=== PATIENT | male | born 1965 | race African-American/Black ===

== ENCOUNTER 2018-08-07 10:41 | Observation (INO) ==
[2018-08-07 10:57] VITALS: BMI 24.5
[2018-08-07 11:16] LABS: BASOPHILS # (AUTO) 0.1 X10^3/uL (0.0-0.1); BASOPHILS % (AUTO) 0.6 % (0.2-1.0); EOSINOPHILS # (AUTO) 0.1 x10^3/uL (0.0-0.2); EOSINOPHILS % (AUTO) 1.1 % (0.9-2.9); HEMATOCRIT 46.1 % (42.0-54.0); HEMOGLOBIN 15.6 g/dL (13.5-18.0); LYMPHOCYTES # (AUTO) 1.9 X10^3/uL (1.3-2.9); LYMPHOCYTES % (AUTO) 20.4 % (21.0-51.0); MEAN CORPUSCULAR HEMOGLOBIN 28.7 pg (27.0-34.0); MEAN CORPUSCULAR HGB CONC 33.9 g/dL (33.0-35.0); MEAN CORPUSCULAR VOLUME 84.7 fL (80.0-100.0); MEAN PLATELET VOLUME 7.2 fL (7.4-11.0); MONOCYTES # (AUTO) 0.6 x10^3/uL (0.3-0.8); MONOCYTES % (AUTO) 6.7 % (0.0-13.0); NEUTROPHILS # (AUTO) 6.6 x10^3/uL (2.2-4.8); NEUTROPHILS % (AUTO) 71.2 % (42.0-75.0); PLATELET COUNT 293 X10^3/uL (150.0-450.0); RED BLOOD COUNT 5.44 X10^6/uL (4.7-6.0); RED CELL DISTRIBUTION WIDTH 13.8 % (11.6-16.5); WHITE BLOOD COUNT 9.2 X10^3/uL (3.6-10.0)
--- NOTE | 2018-08-07 11:22 | DR.CP ---
HPI Time Seen Time Seen by Provider: 08/07/18 11:20 PCP Primary Care Physician: TAMARA HPI Comment HPI Comment: 53YR OLD MALE HERE IN ED WITH SYCOPAL EPISODE IN THE PCP OFFICE. PATIENT SEEN IN ED 2 DAYS AGO AND STARTED FEELING WEAK AND PASS OUT WHILE IN PCP OFFICE. Complaint Chief Complaint Doctor Comments: SYNCOPAL EPISODE, CHEST PAIN. Chief Complaint:: PT C/O SYNCOPAL EPISODE AT THE DOCTORS OFFICE. PT STATES HE IS HAVING CHEST PAIN. PT STATES HE WAS SEEN IN THE ER DEPT X2 DAYS AGO AND WAS SENT HOME WITH A PRESCRIPTION OF AMLIODIPINE 5MG. Reviewed Nurses Notes Review: Yes Source History Provided: Patient Mode of Arrival Mode of Arrival: EMS Timing Onset of Chief Complaint: 08/04/18 Came on: Suddenly Duration Duration: Constant Duration: Minutes Location Location of Chest Pain: Chest Context Onset: At rest Cardiac Risk Factors: None PE Risk Factors: None History of: None Quality Quality: Pressure like Severity Severity: Moderate Associated Signs and Symptoms Associated Signs and Symptoms: Other (sncopal episode.) PMH PMH Past Medical History: No Past Surgical History: Yes Surgical History: Other Past Surgical History Comment: KIDNEY REMOVAL (DONATION) Family History History of Family Medical Conditions: Yes Family Medical History: Diabetes Mellitus, [place] and Hypertension Social History Does any household member use tobacco: No Alcohol Use: None Do you use any recreational Drugs:: No Lives With: Family Lives Where: Home infectious screening In the last 2 months have you had wt loss of >10#?: NO Have you had fever, night sweats or hemotysis?: No Have you traveled outside the country in the last 6 months?: No Isolation: Standard ROS Review of Systems Constitutional: Weakness Eyes: No Symptoms Reported ENTM: No Symptoms Reported Respiratoy: No Symptoms Reported Cardiovascular: Syncope Gastrointestinal/Abdominal: No Symptoms Reported Genitourinary: No Symptoms Reported Neurological: Weakness Musculoskeletal: No Symptoms Reported Integumentary: No Symptoms Reported Hematologic/Lymphatic: No Symptoms Reported Endocrine: No Symptoms Reported Psychiatric: No Symptoms Reported All Other Systems: Reviewed and Negative PE Vitals Vitals: Temperature 98.3 F Pulse Rate [Apical] 66 Pulse Rate 63 Respiratory Rate 18 Blood Pressure [Right Arm] 162/91 Blood Pressure [Left Arm] 168/91 Blood Pressure 174/93 O2 Sat by Pulse Oximetry 100 General Limitations: No Limitations General Appearance: Alert and In No Apparent Distress Head Head Exam: Normal Inspection Eyes Eye exam: Normal Appearance ENT ENT Exam: Normal Exam Chest Chest Inspection: Normal Inspection Respiratory Respiratory Exam: Normal Lung Sounds Bilat Respiratory Exam: Bilateral: Clear to Auscultation Cardiovascular Cardiovascular Exam: Regular Rate and Normal Rhythm Pulse: Normal Edema: Normal Abdominal Exam Abdominal Exam: Normal Inspection, Normal Bowel Sounds and Soft Extremities Extremities Exam: Normal Inspection Back Back Exam: Normal Inspection Neurologic Neurological Exam: Alert and Oriented X3 Psychiatric Psychiatric Exam: Normal Affect and Normal Mood Skin Skin Exam: Warm, Dry, Intact and Normal Color MDM Differential Diagnosis Differential Diagnosis: Angina, Chest Wall Pain, CHF, Costochondritis, Myocardial Infarction, Pleuritis, Pneumonia, Pneumothorax and Pulmonary Embolus COURSE Treatment Treatment: see orders. Education/Counseling Education/Counseling: Patient Educated On: Diagnosis and Needs for Follow Up ROR Labs Reviewed Laboratory Results Reviewed?: Yes Result Diagrams: 08/09/18 05:00 08/09/18 05:00 Laboratory: WBC 10.8 X10^3/uL (3.6-10.0) H 08/09/18 05:00 RBC 5.39 X10^6/uL (4.7-6.0) 08/09/18 05:00 Hgb 15.7 g/dL (13.5-18.0) 08/09/18 05:00 Hct 45.6 % (42.0-54.0) 08/09/18 05:00 MCV 84.5 fL (80.0-100.0) 08/09/18 05:00 MCH 29.1 pg (27.0-34.0) 08/09/18 05:00 MCHC 34.5 g/dL (33.0-35.0) 08/09/18 05:00 RDW 13.6 % (11.6-16.5) 08/09/18 05:00 Plt Count 305 X10^3/uL (150.0-450.0) 08/09/18 05:00 MPV 7.3 fL (7.4-11.0) L 08/09/18 05:00 Neut % (Auto) 65.7 % (42.0-75.0) 08/09/18 05:00 Lymph % (Auto) 25.5 % (21.0-51.0) 08/09/18 05:00 [place] % (Auto) 6.6 % (0.0-13.0) 08/09/18 05:00 Eos % (Auto) 1.6 % (0.9-2.9) 08/09/18 05:00 Baso % (Auto) 0.6 % (0.2-1.0) 08/09/18 05:00 Neut # (Auto) 7.1 x10^3/uL (2.2-4.8) H 08/09/18 05:00 Lymph # (Auto) 2.8 X10^3/uL (1.3-2.9) 08/09/18 05:00 [place] # (Auto) 0.7 x10^3/uL (0.3-0.8) 08/09/18 05:00 Eos # (Auto) 0.2 x10^3/uL (0.0-0.2) 08/09/18 05:00 Baso # (Auto) 0.1 X10^3/uL (0.0-0.1) 08/09/18 05:00 Absolute Nucleated RBC 0.0 /100WBC 08/09/18 05:00 INR Target Range - 08/07/18 11:08 INR 0.95 (0.8-1.3) 08/07/18 11:08 APTT 20.0 SECONDS (22.9-36.5) L 08/07/18 11:08 PTT Comment - 08/07/18 11:08 Sodium 143 mmol/L (136-145) 08/09/18 05:00 Corrected Sodium TNP 08/09/18 05:00 Potassium 3.7 mmol/L (3.5-5.1) 08/09/18 05:00 Chloride 108 mmol/L (98-107) H 08/09/18 05:00 Carbon Dioxide 27.2 mmol/L (21-32) 08/09/18 05:00 BUN 10 mg/dL (7-18) 08/09/18 05:00 Creatinine 1.02 mg/dL (0.70-1.30) 08/09/18 05:00 Est GFR (MDRD) Af Amer > 60 (>60) 08/09/18 05:00 Est GFR (MDRD) Non-Af > 60 (>60) 08/09/18 05:00 Glucose 102 mg/dL (65-99) H 08/09/18 05:00 Calcium 8.8 mg/dL (8.5-10.1) 08/09/18 05:00 Corrected Calcium 9.4 mg/dL (8.5-10.1) 08/09/18 05:00 Magnesium 1.7 mg/dL (1.7-2.9) 08/09/18 05:00 Total Bilirubin 0.30 mg/dL (0.2-1.0) 08/09/18 05:00 AST 18 Units/L (15-37) 08/09/18 05:00 ALT 32 Units/L (12-78) 08/09/18 05:00 Alkaline Phosphatase 84 Units/L (46-116) 08/09/18 05:00 Creatine Kinase 279 Units/L (39-308) 08/09/18 08:45 CK-MB (CK-2) 1.7 ng/mL (0-4.0) 08/09/18 08:45 CK/CKMB % Calc 0.6 % (<4) 08/09/18 08:45 Troponin I < 0.02 ng/mL (0-1.5) 08/09/18 08:45 Total Protein 7.2 g/dL (6.4-8.2) 08/09/18 05:00 Albumin 3.3 g/dL (3.4-5.0) L 08/09/18 05:00 Globulin 3.9 g/dL (2.5-4.5) 08/09/18 05:00 Albumin/Globulin Ratio 0.8 Ratio (1.1-2.1) L 08/09/18 05:00 Triglycerides 68 mg/dL (0-150) 08/08/18 04:56 Cholesterol 136 mg/dL (0-200) 08/08/18 04:56 LDL Cholesterol, Calc 86 mg/dL (0-100) 08/08/18 04:56 HDL Cholesterol 36 mg/dL (40-60) L 08/08/18 04:56 Cholesterol/HDL Ratio 3.8 (0.0-5.0) 08/08/18 04:56 XRAY XRAY Interpreted by: Radiologist XRAY Findings: REPORT ON RECORD NOTED EKG Rate: 60 [place]: Normal Rhythm: NSR Hypertrophy: LVH Diagnosis Discharge Problem: Hypertensive crisis without congestive heart failure Instructions Instructions: How to Take Your Blood Pressure Near-Syncope, [id number] Managing Your Hypertension Hypertension Forms: Patient Portal
[2018-08-07 11:34] LABS: BLOOD UREA NITROGEN 11 mg/dL (7-18); CALCIUM 9.1 mg/dL (8.5-10.1); CARBON DIOXIDE 27.8 mmol/L (21-32); CHLORIDE 105 mmol/L (98-107); COR NA(FOR HYPERGLY) 140 mmol/L (136-145); CREATININE 1.19 mg/dL (0.70-1.30); SODIUM 140 mmol/L (136-145); TROPONIN I < 0.02 ng/mL (0-1.5); eGFR NON BLACK RACES > 60 (>60)
[2018-08-07 11:57] LABS: ALANINE AMINOTRANSFERASE 38 Units/L (12-78); ALBUMIN 3.7 g/dL (3.4-5.0); ALKALINE PHOSPHATASE 84 Units/L (46-116); ASPARTATE AMINO TRANSFERASE 25 Units/L (15-37); CKMB % 0.5 % (<4); CREATINE KINASE 819 Units/L (39-308); MAGNESIUM 1.7 mg/dL (1.7-2.9); TOTAL PROTEIN 7.7 g/dL (6.4-8.2)
[2018-08-07 12:01] LABS: CREATINE KINASE MB 4.4 ng/mL (0-4.0)
--- NOTE | 2018-08-07 12:18 | RAD ---
HISTORY: Syncope Study: Single view of the chest. Comparison: None. Findings: The cardiomediastinal silhouette is normal. No focal consolidations, pleural effusions or pneumothorax. Osseous structures demonstrate no acute abnormality. IMPRESSION: 1. No acute cardiopulmonary process. Reported By:
--- NOTE | 2018-08-07 12:19 | CT ---
HEAD CT WITHOUT IV CONTRAST CLINICAL INDICATION: Syncope TECHNIQUE: Axial CT images from skull base to vertex without IV contrast.Dose reduction techniques including Automated Exposure Control (AEC) and adjustment of mA and kV were utlized. COMPARISON: None FINDINGS: There is no abnormal brain parenchymal density. There is no evidence of acute infarction, intracranial hemorrhage, mass or mass effect, or abnormal extra-axial collection. The density of the larger dural venous sinuses is normal. The ventricles are normal in size, shape and position. The skull base and calvarium are normal. The included paranasal sinuses and mastoid air cells are predominantly clear. IMPRESSION: 1. No acute intracranial abnormality. Reported By:
[2018-08-07] MEDS ORDERED: NS 1000 ML 1,000 ML IV SCH (15:00)
[2018-08-07 15:27] LABS: CKMB % 0.6 % (<4); CREATINE KINASE 815 Units/L (39-308); TROPONIN I < 0.02 ng/mL (0-1.5)
[2018-08-07 15:31] LABS: CREATINE KINASE MB 4.7 ng/mL (0-4.0)
[2018-08-07 21:00] LABS: CKMB % 0.5 % (<4); CREATINE KINASE 632 Units/L (39-308); TROPONIN I < 0.02 ng/mL (0-1.5)
[2018-08-08 02:35] LABS: CKMB % 0.5 % (<4); CREATINE KINASE MB 2.5 ng/mL (0-4.0)
[2018-08-08 02:48] LABS: TROPONIN I 0.02 ng/mL (0-1.5)
[2018-08-08 05:30] LABS: BASOPHILS # (AUTO) 0.1 X10^3/uL (0.0-0.1); BASOPHILS % (AUTO) 0.5 % (0.2-1.0); EOSINOPHILS # (AUTO) 0.2 x10^3/uL (0.0-0.2); EOSINOPHILS % (AUTO) 1.5 % (0.9-2.9); HEMATOCRIT 43.6 % (42.0-54.0); LYMPHOCYTES # (AUTO) 2.2 X10^3/uL (1.3-2.9); LYMPHOCYTES % (AUTO) 20.5 % (21.0-51.0); MEAN CORPUSCULAR HEMOGLOBIN 29.1 pg (27.0-34.0); MEAN CORPUSCULAR HGB CONC 34.4 g/dL (33.0-35.0); MEAN CORPUSCULAR VOLUME 84.5 fL (80.0-100.0); MEAN PLATELET VOLUME 7.6 fL (7.4-11.0); MONOCYTES # (AUTO) 0.8 x10^3/uL (0.3-0.8); MONOCYTES % (AUTO) 7.1 % (0.0-13.0); NEUTROPHILS # (AUTO) 7.6 x10^3/uL (2.2-4.8); NEUTROPHILS % (AUTO) 70.4 % (42.0-75.0); PLATELET COUNT 290 X10^3/uL (150.0-450.0); RED BLOOD COUNT 5.16 X10^6/uL (4.7-6.0); RED CELL DISTRIBUTION WIDTH 13.9 % (11.6-16.5); WHITE BLOOD COUNT 10.7 X10^3/uL (3.6-10.0)
[2018-08-08 05:47] LABS: ALANINE AMINOTRANSFERASE 34 Units/L (12-78); ALBUMIN 3.2 g/dL (3.4-5.0); ALKALINE PHOSPHATASE 73 Units/L (46-116); ASPARTATE AMINO TRANSFERASE 18 Units/L (15-37); BLOOD UREA NITROGEN 12 mg/dL (7-18); CALCIUM 8.8 mg/dL (8.5-10.1); CARBON DIOXIDE 24.6 mmol/L (21-32); CHLORIDE 108 mmol/L (98-107); CHOL/HDL RATIO 3.8 (0.0-5.0); CHOLESTEROL 136 mg/dL (0-200); COR CA(FOR HYPOALB) 9.4 mg/dL (8.5-10.1); CREATININE 0.94 mg/dL (0.70-1.30); HDL CHOLESTEROL 36 mg/dL (40-60); MAGNESIUM 1.6 mg/dL (1.7-2.9); SODIUM 142 mmol/L (136-145); TOTAL PROTEIN 6.9 g/dL (6.4-8.2); TRIGLYCERIDES 68 mg/dL (0-150); eGFR NON BLACK RACES > 60 (>60)
[2018-08-08] MEDS ORDERED: K-DUR TAB 20 MEQ PO PRN (07:40)
[2018-08-08] MEDS ORDERED: KLOR-CON PO PRN (07:40)
[2018-08-08] MEDS ORDERED: POTASSIUM CHLORIDE LIQ 20 MEQ UDC PO PRN (07:40)
[2018-08-08] MEDS ORDERED: POTASSIUM CHL 40 MEQ/NS 0.45% 500 ML IV PRN (07:40)
[2018-08-08] MEDS ORDERED: K-RIDER 10 MEQ/NS 100 ML 10 MEQ/100 ML BAG IV PRN (07:40)
[2018-08-08] MEDS ORDERED: POTASSIUM CHL 60 MEQ/NS 0.45% 500 ML IV PRN (07:40)
[2018-08-08] MEDS ORDERED: MICRO K EXTEN CAP 10 MEQ PO PRN (07:40)
[2018-08-08] MEDS ORDERED: MAGNESIUM SULFATE 1 GRAM/100 mL PREMIX 1 G/100 ML BAG IV ONE (08:05)
[2018-08-08] MEDS: MAGNESIUM SULFATE 1 GRAM/100 mL PREMIX 1 GM/100 ML BAG IV PRN ×2 (08:15→12:10)
[2018-08-08] MEDS: NORVASC TAB 5 MG PO SCH ×2 (09:54→20:03)
[2018-08-08] MEDS: NS 1000 ML 1,000 ML IV SCH ×3 (12:11→20:59)
[2018-08-08 13:15] LABS: CKMB % 0.5 % (<4); CREATINE KINASE 427 Units/L (39-308); CREATINE KINASE MB 2.2 ng/mL (0-4.0); TROPONIN I < 0.02 ng/mL (0-1.5)
[2018-08-08] MEDS: ASPIRIN EC 81 MG PO SCH (13:47)
--- NOTE | 2018-08-08 17:27 | VAS ---
HISTORY: Concern for carotid artery stenosis. Carotid disease. Technique: Multiple golden scale and color flow Doppler images of the right and left carotid arterial system were obtained. The vertebral arterial system was evaluated as well. Findings: Nonocclusive color flow Doppler is seen throughout the right and left carotid arterial system. No hemodynamically significant carotid arterial stenosis is seen based on velocity criteria. There is mild carotid intimal thickening but without evidence for high-grade stenosis (>70%) or occlusion of the carotid arteries. The right and left vertebral artery demonstrate antegrade flow. IMPRESSION: Elevated velocities in the right CCA in the 50-69% stenosis range. This can occasionally be seen with diastolic hypertension, however. This finding needs clinical context. Mild bilateral carotid intimal thickening appreciated bilaterally. Appropriate, antegrade, vertebral arterial flow. Peak right ICA velocity: 90 centimeter/seconds. Peak right CCA velocity: 127 centimeter/seconds. Peak left ICA velocity: 50 centimeter/seconds. Peak left CCA velocity: 74 centimeter/seconds. Right ICA to CCA ratio: 1.3. Left ICA to CCA ratio: 0.6. Reported By:
--- NOTE | 2018-08-08 18:17 | DR.H&P ---
H&P - History & Physical for Day of: H&P Date: 08/07/18 - Chief Complaint Chief Complaint: SYNCOPE, CP, ELEVATED BP - History of Present Illness History of Present Illness: 53 BM ER ADMISSION AFTER PRESENTING TO ER VIA EMS. PT C/O SYNCOPAL EPISODE AT THE DOCTORS OFFICE AFTER HAVING LAB WORK. PT STATES HE IS HAVING CHEST PAIN. PT STATES HE WAS SEEN IN THE ER DEPT X2 DAYS AGO AND WAS SENT HOME WITH A PRESCRIPTION OF AMLIODIPINE 5MG. PT HAD PMH NEPHRECTOMY. PT DENIES ANY HX OF CAD, COPD. - Past Medical History Past Medical History: Hypertension - Past Surgical History Surgical History: Other - Family History Family Medical History: Diabetes Mellitus, [place], Hypertension - Social History Does patient currently use any type of tobacco product: No Have you used tobacco products in the last 12 months: No Type of Tobacco Use: Cigarettes How many years tobacco product used: 20 Does any household member use tobacco: No Alcohol Use: Occasionally Drug Use: Prescription Drugs - Medications Home Medications: No Known Drug Allergies Allergy (Verified 08/04/18 22:34) - Review of Systems Constitutional: Weakness Eyes: No Symptoms Reported ENT: No Symptoms Reported Respiratory: SOB with Excertion Cardiovascular: Chest Pain Gastrointestinal: Nausea Genitourinary: No Symptoms Reported Musculoskeletal: No Symptoms Reported Skin: No Symptoms Reported Neurological: Weakness - Physical Exam Vital Signs: Temperature 98.9 F Pulse Rate [Apical] 60 Pulse Rate 63 Respiratory Rate 20 Blood Pressure [Right Arm] 172/99 Blood Pressure [Left Arm] 151/89 Blood Pressure 174/93 O2 Sat by Pulse Oximetry 100 Oriented: Normal Eyes: Normal Ear: Normal Nose: Normal Throat: Normal Respiratory: Clear Throughout Cardiovascular: Normal Auscultation: Bowel Sounds: Bruit Palpation: Normal Tenderness: Normal Skin: Diaphoresis Musculoskeletal: Normal Psychiatric: Anxiety Affect: Anxious Speech Pattern: Clear, Appropriate - Assessment/Plan (1) Syncope Status: Acute Plan: ADMIT, CT HEAD ON ADMISSION. SERIAL CE AND EKGS. BP CONTROL, GENTLE IV HYDRATION. FLP (2) Hypertension Status: Acute (3) Chest pain Status: Acute - Allergies Allergies/Adverse Reactions: Allergies Allergy/AdvReac Type Severity Reaction Status Date / Time No Known Drug Allergies Allergy Verified 08/04/18 22:34
[2018-08-08] MEDS ORDERED: COLACE CAP 100 MG PO PRN (19:13)
[2018-08-08] MEDS: PROTONIX INJ 40 MG VIAL IVP SCH (20:02)
[2018-08-08] MEDS ORDERED: CRESTOR TAB 10 MG PO SCH (21:00)
[2018-08-09] MEDS: NS 1000 ML 1,000 ML IV SCH (04:39)
[2018-08-09 05:32] LABS: BASOPHILS # (AUTO) 0.1 X10^3/uL (0.0-0.1); BASOPHILS % (AUTO) 0.6 % (0.2-1.0); EOSINOPHILS # (AUTO) 0.2 x10^3/uL (0.0-0.2); EOSINOPHILS % (AUTO) 1.6 % (0.9-2.9); HEMATOCRIT 45.6 % (42.0-54.0); HEMOGLOBIN 15.7 g/dL (13.5-18.0); LYMPHOCYTES # (AUTO) 2.8 X10^3/uL (1.3-2.9); LYMPHOCYTES % (AUTO) 25.5 % (21.0-51.0); MEAN CORPUSCULAR HEMOGLOBIN 29.1 pg (27.0-34.0); MEAN CORPUSCULAR HGB CONC 34.5 g/dL (33.0-35.0); MEAN CORPUSCULAR VOLUME 84.5 fL (80.0-100.0); MEAN PLATELET VOLUME 7.3 fL (7.4-11.0); MONOCYTES # (AUTO) 0.7 x10^3/uL (0.3-0.8); MONOCYTES % (AUTO) 6.6 % (0.0-13.0); NEUTROPHILS # (AUTO) 7.1 x10^3/uL (2.2-4.8); NEUTROPHILS % (AUTO) 65.7 % (42.0-75.0); PLATELET COUNT 305 X10^3/uL (150.0-450.0); RED BLOOD COUNT 5.39 X10^6/uL (4.7-6.0); RED CELL DISTRIBUTION WIDTH 13.6 % (11.6-16.5); WHITE BLOOD COUNT 10.8 X10^3/uL (3.6-10.0)
[2018-08-09 05:47] LABS: ALANINE AMINOTRANSFERASE 32 Units/L (12-78); ALBUMIN 3.3 g/dL (3.4-5.0); ALKALINE PHOSPHATASE 84 Units/L (46-116); ASPARTATE AMINO TRANSFERASE 18 Units/L (15-37); BLOOD UREA NITROGEN 10 mg/dL (7-18); CALCIUM 8.8 mg/dL (8.5-10.1); CARBON DIOXIDE 27.2 mmol/L (21-32); CHLORIDE 108 mmol/L (98-107); COR CA(FOR HYPOALB) 9.4 mg/dL (8.5-10.1); CREATININE 1.02 mg/dL (0.70-1.30); MAGNESIUM 1.7 mg/dL (1.7-2.9); SODIUM 143 mmol/L (136-145); TOTAL PROTEIN 7.2 g/dL (6.4-8.2); eGFR NON BLACK RACES > 60 (>60)
[2018-08-09] MEDS: MAGNESIUM SULFATE 1 GRAM/100 mL PREMIX 1 GM/100 ML BAG IV PRN (06:02)
[2018-08-09] MEDS: PROTONIX INJ 40 MG VIAL IVP SCH (08:39)
[2018-08-09] MEDS ORDERED: NORVASC TAB 10 MG PO SCH (09:00)
[2018-08-09 09:18] LABS: CKMB % 0.6 % (<4); CREATINE KINASE 279 Units/L (39-308); CREATINE KINASE MB 1.7 ng/mL (0-4.0); TROPONIN I < 0.02 ng/mL (0-1.5)
[2018-08-09] MEDS ORDERED: XANAX PO PRN (09:40)
[2018-08-09] MEDS: ASPIRIN EC 81 MG PO SCH (10:00)
[2018-08-09] MEDS ORDERED: NS 100 ML IV 100 ML ONE (12:58)
--- NOTE | 2018-08-09 15:22 | CT ---
HISTORY: Syncope. Study: CTA carotids with/without contrast Comparison: Carotid ultrasound dated August 08, [address] head dated August 07, 2018. Technique: Multiple axial images of the carotids before and after the administration of IV contrast. 3D reformats/MIP images were also performed. Sagittal and coronal reformats were performed and reviewed. Dose reduction techniques including Automated Exposure Control (AEC) and adjustment of mA and kV were utilized. Findings: Mucous retention cyst within the left maxillary sinus. Remaining visualized paranasal sinuses and mastoid air cells are clear. The visualized portions of the posterior fossa and orbits are unremarkable in appearance. The parotid glands, submandibular glands, and thyroid gland are unremarkable in their contrast appearance. The carotid space on the right and left is unremarkable. No mass or significant lymphadenopathy can be identified. The prevertebral and paraspinous regions are unremarkable. The nasopharynx, oropharynx, hypopharynx are unremarkable. The larynx appears symmetric. The vascular structures are unremarkable in their appearance. The aortic arch is unremarkable. The visualized portions of the mediastinum are unremarkable as well. The bony structures appear intact. The visualized portions of the lung apex on the right and left are unremarkable as well. IMPRESSION: Unremarkable exam. Reported By:
[2018-08-09 17:01] VITALS: BP 162/91
== END 2018-08-09 19:05 | disposition home or self-care (01) ==
LOC: MED/SURG 10:41 → ER 10:41 → MED/SURG 14:47
PROVIDERS: ADMIT Internal Medicine; ATTEND Internal Medicine
DX: R94.31 Abnormal electrocardiogram [ECG] [EKG]; R55 Syncope and collapse; R79.1 Abnormal coagulation profile; R07.89 Other chest pain; I16.0 Hypertensive urgency
CPT/HCPCS: 36415; 70450; 70498; 71010; 71045; 80053; 80061; 82550; 82553; 83735; 84132; 84484; 85025; 85610; 85730; 93005; 93880; 94760; 96365; 96367; 96374; 99284; A4216; A4222; C9113; G0378; J3475; J7030; J7050